=== PATIENT | female | born 1945 | race Caucasian/White ===

== ENCOUNTER 2016-10-30 04:41 | Emergency (ER) | payer MEDICARE, MEDICAID ==
[~2016-10-30] VITALS: Ht 154.9 cm; Wt 63.2 kg
[~2016-10-30 04:41] MED LIST: HYDR-3498 PO; LOSA100T7 PO; MTF1000T PO; OMEP20CA16 PO; ONDA4TAB35 PO
[2016-10-30 04:47] VITALS: Ht 154.9 cm; Wt 63.2 kg
--- NOTE | 2016-10-30 05:54 | RADRPT ---
PROCEDURE: XR Chest. CLINICAL INDICATION: Abdominal pain TECHNIQUE: A single AP view of the chest was obtained. COMPARISON: None. FINDINGS: No focal airspace opacification, pleural effusion or pneumothorax is seen. The cardiomediastinal si lhouette is within normal limits for size. Calcifications are seen within the aortic arch. The osseo us structures are unremarkable. IMPRESSION: 1. No radiographic evidence of acute cardiopulmonary disease. 2. Aortic atherosclerosis. RPTAT: HH .Veena Pineda MD, Date Time Electronically viewed and signed by .Veena Pineda MD, on 10/30/2016 05:54 .G/
--- NOTE | 2016-10-30 06:27 | RADRPT ---
PROCEDURE: CT Abdomen and Pelvis without contrast. CLINICAL INDICATION: Abdominal pain. TECHNIQUE: Routine axial tomographic images of the abdomen and pelvis were obtained from the domes the diaphragm to the symphysis pubis. The patient was scanned withoutoral or intravenous contrast. Coronal and sagittal reformatted images were obtained from the axial source images. Images were re viewed on a high-resolution PACS workstation. The total exam CTDI equals 8.85 mGy and the total exam DLP equals 513.68 mGy-cm. One or more of the following dose reduction techniques were used: Autom ated exposure control, adjustment of the mA and / or kV according to patient size, or use of iterati ve reconstruction technique. COMPARISON: None. FINDINGS: The visualized portions of the lung bases demonstrate mild bilateral basilar atelectasis. Evaluat ion of the intra-abdominal solid organs is limited on this noncontrast examination. The liver appea rs normal in size. There is no intra or extrahepatic biliary dilatation. The gallbladder appears s urgically absent. The spleen, pancreas, and adrenal glands are unremarkable. The kidneys are symmetric in size. No renal, ureteral, or bladder calculi are identified. No perine phric inflammatory changes are identified. There is a 1.9 cm cyst within the lower pole of the right kidney. The urinary bladder is grossly unremarkable. The bowel demonstrates normal course and caliber. There is no evidence of bowel obstruction. Divert icula are again noted throughout the sigmoid colon. The appendix is unremarkable. The uterus and adnexa are grossly unremarkable. No intraperitoneal free fluid, free air or abscess is identified. The aorta is normal in caliber and contains vascular calcifications. No retroperitoneal, mesenteric , or inguinal lymphadenopathy is identified. The osseous structures demonstrate degenerative changes of the spine with multilevel facet arthropat hy. There are hypertrophic changes of the bilateral L5 pars with findings suggesting prior pars def ects. There is 2-3 mm anterolisthesis of L5 on S1. No significant subcutaneous soft tissue abnormal ities are seen. IMPRESSION: 1. Limited, noncontrast CT of the abdomen and pelvis. No acute intra-abdominal abnormality identifi ed. No significant interval change. 2. Status post cholecystectomy. 3. Colonic diverticulosis. 4. 1.9 cm cyst within the lower pole of the right kidney. 5. Senescent changes with aortic atherosclerosis and degenerative changes of the spine. RPTAT: HH .Veena Pineda MD, MD Date Time Electronically viewed and signed by .Veena Pineda MD, MD on 10/30/2016 06:26 .G/
[2016-10-30 06:34] LABS: ADD UMIC YES; URINE BILIRUBIN (Dip) NEGATIVE (NEGATIVE); URINE BLOOD (Dip) 3+ (NEGATIVE); URINE COLOR LT. YELLOW (YELLOW); URINE GLUCOSE (Dip) NEGATIVE (NEGATIVE); URINE KETONES (Dip) NEGATIVE (NEGATIVE); URINE LEUKOCYTE ESTERASE (Dip) 1+ (NEGATIVE); URINE NITRITE (Dip) NEGATIVE (NEGATIVE); URINE TOTAL PROTEIN (Dip) NEGATIVE (NEGATIVE); URINE UROBILINOGEN (Dip) 0.2 E.U./dL (0.1-1.0)
[2016-10-30 06:36] LABS: BASOPHILS % 0.4 % (0.0-2.0); EOSINOPHILS # 0.9 10^3/ul (0.0-0.5); EOSINOPHILS % 16.3 % (0.0-7.0); HEMATOCRIT 40.5 % (37.0-47.0); HEMOGLOBIN 13.6 g/dl (12.0-16.0); LYMPHOCYTES % 36.5 % (15.0-51.0); MEAN CORPUSCULAR HEMOGLOBIN 31.6 pg (29.0-33.0); MEAN CORPUSCULAR HGB CONC 33.6 g/dl (32.0-37.0); MEAN CORPUSCULAR VOLUME 94.2 fl (82.0-101.0); MEAN PLATELET VOLUME 9.3 fl (7.4-10.4); MONOCYTE # 0.7 10^3/ul (0.3-0.9); MONOCYTES % 12.2 % (0.0-11.0); NEUTROPHIL # 1.9 10^3/ul (1.6-7.5); NEUTROPHILS % 34.6 % (39.0-77.0); PLATELET COUNT 196 10^3/UL (140-440); RED CELL DISTRIBUTION WIDTH 14.1 % (11.5-14.5); UNCORRECTED WBC 5.6 10^3/ul (4.8-10.8); WHITE BLOOD COUNT 5.6 10^3/ul (4.8-10.8)
[2016-10-30 06:40] LABS: INR 0.87; PROTIME 11.8 Sec (12.2-14.2); PT RATIO 0.9
[2016-10-30 06:41] LABS: PARTIAL THROMBOPLASTIN TIME 31.5 Sec (25.0-35.0)
[2016-10-30 06:43] LABS: ALBUMIN 4.2 g/dl (3.3-4.9); CHLORIDE 105 mmol/L (97-110); SODIUM 148 mmol/L (135-144)
[2016-10-30 06:44] LABS: POTASSIUM 4.4 mmol/L (3.5-5.1)
[2016-10-30 06:46] LABS: ALANINE AMINOTRANSFERASE 31 IU/L (13-69); ALBUMIN/GLOBULIN RATIO 1.07; ALKALINE PHOSPHATASE 64 IU/L (42-121); ANION GAP 22 (8-16); ASPARTATE AMINO TRANSFERASE 38 IU/L (15-46); BLOOD UREA NITROGEN 27 mg/dl (7-20); CARBON DIOXIDE 25 mmol/L (21-31); CREATININE 0.87 mg/dl (0.44-1.00); GLUCOSE 91 mg/dl (70-220); TOTAL PROTEIN 8.1 g/dl (6.1-8.1)
[2016-10-30 06:47] LABS: CALCIUM 9.6 mg/dl (8.4-10.2)
[2016-10-30 06:48] LABS: CONDITION 1; LH ANALYZER COMMENTS 1
[2016-10-30 06:49] LABS: BACTERIA,URINE FEW
[2016-10-30 06:59] LABS: TROPONIN-I < 0.012 ng/ml (0.00-0.12)
[2016-10-30] MEDS ORDERED: OSLT75C PO (07:23)
[2016-10-30] MEDS ORDERED: ONDA4TAB14 PO (07:23)
[2016-10-30 07:30] VITALS: BP 105/65; PULSE 76; RESP 18; TEMP 99.8
--- NOTE | 2016-10-30 07:38 | ERD ---
ER Documentation Chief Complaint Date/Time DATE: 10/30/16 TIME: 07:36 Chief Complaint abd pain x 3 days. also c/o cough HPI 71-year-old female. Patient Registration Supervisor used. The patient presents the emergency room with multiple complaints including 2-3 days of symptoms that include generalized malaise, subjective fevers, dry nonproductive cough and epigastric abdominal discomfort with diarrhea. She states that every time she gets sick she has this epigastric abdominal pain with diarrhea. She states that she has been having this for more than 3 years. The patient thinks that she had her flu shot this year but is unsure. She denies any significant shortness of breath, no headache. She has not taken anything prior to arrival. ROS All systems reviewed and are negative except as per history of present illness. Medications Home Meds Active Scripts Ondansetron (Ondansetron Odt) 4 Mg Tab.rapdis, 4 MG PO Q6H Y for NAUSEA AND/OR VOMITING, #30 TAB Prov:SHIVA ANDERS MD 10/30/16 Oseltamivir Phosphate* (Tamiflu*) 75 Mg Capsule, 75 MG PO BID for 5 Days, CAP Prov:SHIVA ANDERS MD 10/30/16 Hydrocodone Bit-Acetaminophen* ([place]*) 5-325 Mg Tab, 1 TAB PO Q6 Y for PAIN, # 7 TAB Prov:IZABELLA MARTINEZ DO 03/27/15 Ondansetron Hcl* (Zofran* ODT) 4 mg -ODT Tab.disper, 4 MG PO Q6 Y for NAUSEA AND /OR VOMITING, #10 TAB Prov:IZABELLA MARTINEZ DO 03/27/15 Reported Medications Omeprazole* (Omeprazole*) 20 Mg Capsule.dr, 20 MG PO DAILY, CAP 03/27/15 Losartan Potassium* (Losartan Potassium*) 100 Mg Tablet, 100 MG PO DAILY, TAB 03/27/15 Metformin* (Glucophage*) 1,000 Mg Tablet, 1000 MG PO BID, TAB 03/27/15 Allergies Allergies: Coded Allergies: No Known Allergies (Verified Allergy, Mild, 10/30/16) PMhx/Soc History of Surgery: Yes (Ex lap 43 years ago) Anesthesia Reaction: No Hx Neurological Disorder: No Hx Respiratory Disorders: No Hx Cardiac Disorders: Yes (HTN) Hx Psychiatric Problems: No Hx Alcohol Use: No Hx Substance Use: No Hx Tobacco Use: No Smoking Status: Never smoker FmHx Family History: No diabetes Physical Exam Vitals Vital Signs Date Time Temp Pulse Resp B/P Pulse Ox O2 Delivery O2 Flow Rate FiO2 10/30/16 04:47 97.7 94 20 147/57 98 Physical Exam General: Well developed, well nourished, no acute distress Head: Normocephalic, atraumatic. Eyes: Pupils equally reactive, EOM intact ENT: Moist mucous membranes Neck: Supple, no lymphadenopathy Respiratory: Lungs clear bilaterally, no distress Cardiovascular: RRR, no murmurs, rubs, or gallops Abdominal: Soft, non-tender, non-distended, no peritoneal signs : Deferred MSK: No edema, no unilateral swelling, 5/5 strength Neurologic: Alert and oriented, moving all extremities, normal speech, no focal weakness, no cerebellar signs Skin: No rash Psych: Normal mood Result Diagram: 10/30/16 0600 10/30/16 0600 Results 24 hrs Laboratory Tests Test 10/30/16 05:45 10/30/16 06:00 Urine Bacteria FEW Urine Bilirubin NEGATIVE Urine Clarity CLEAR Urine Color LT. YELLOW Urine Epithelial Cells FEW Urine Glucose NEGATIVE% Urine Hemoglobin 3+ Urine Ketones NEGATIVE Urine Leukocyte Esterase 1+ Urine Microscopic RBC 5-10/HPF Urine Microscopic WBC 2-5/HPF Urine Nitrite NEGATIVE Urine Specific [place] 1.010 Urine Total Protein NEGATIVE Urine Urobilinogen 0.2 E.U./dL Urine pH 5.0 Activated Partial Thromboplast Time 31.5Sec Alanine Aminotransferase (ALT/SGPT) 31IU/L Albumin 4.2g/dl Albumin/Globulin Ratio 1.07 Alkaline Phosphatase 64IU/L Anion Gap 22 Aspartate Amino Transf (AST/SGOT) 38IU/L Basophils # 0.010^3/ul Basophils % 0.4% Blood Urea Nitrogen 27mg/dl Calcium Level 9.6mg/dl Carbon Dioxide Level 25mmol/L Chloride Level 105mmol/L Creatinine 0.87mg/dl Direct Bilirubin 0.00mg/dl Eosinophils # 0.910^3/ul Eosinophils % 16.3% Globulin 3.90g/dl Glucose Level 91mg/dl Hematocrit 40.5% Hemoglobin 13.6g/dl INR International Normalized Ratio 0.87 Indirect Bilirubin 0.0mg/dl Lipase 164U/L Lymphocytes # 2.010^3/ul Lymphocytes % 36.5% Mean Corpuscular Hemoglobin 31.6pg Mean Corpuscular Hemoglobin Concent 33.6g/dl Mean Corpuscular Volume 94.2fl Mean Platelet Volume 9.3fl Monocytes # 0.710^3/ul Monocytes % 12.2% Neutrophils # 1.910^3/ul Neutrophils % 34.6% Nucleated Red Blood Cells # 0.010^3/ul Nucleated Red Blood Cells % 0.0/100WBC Platelet Count 39078^3/UL Potassium Level 4.4mmol/L Prothrombin Time 11.8Sec Prothrombin Time Ratio 0.9 Red Blood Count 4.3010^6/ul Red Cell Distribution Width 14.1% Sodium Level 148mmol/L Total Bilirubin 0.0mg/dl Total Protein 8.1g/dl Troponin I < 0.012ng/ml White Blood Count 5.610^3/ul Procedures/MDM EKG, MONITORS, & DIAGNOSTIC IMAGING: Chest x-ray: I reviewed and interpreted a 1 view of the chest Mediastinum: No enlargement Cardiac silhouette: No cardiomegaly Airspace: Clear lung castillo bilaterally without evidence of pneumothorax Bones: No evidence of fracture CT abdomen and pelvis: IMPRESSION: 1. Limited, noncontrast CT of the abdomen and pelvis. No acute intra-abdominal abnormality identified. No significant interval change. 2. Status post cholecystectomy. 3. Colonic diverticulosis. 4. 1.9 cm cyst within the lower pole of the right kidney. 5. Senescent changes with aortic atherosclerosis and degenerative changes of the spine. LAB INTERPRETATION: No leukocytosis, no UTI, no hepatobiliary obstruction MEDICAL DECISION MAKING: The patient presents with flulike symptoms. She describes cough, congestion, generalized malaise and subjective fevers. However she is also discovering abdominal pain and diarrhea. She has a mostly benign exam. She is otherwise well-appearing with normal vital signs. She states this abdominal pain and diarrhea as a chronic issue for her and likely unchanged from baseline. However , given the patient's age CT imaging of the abdomen and pelvis would be appropriate. ER COURSE: The patient's laboratory testing and diagnostic imaging are unrevealing. The patient continues to be extremely well-appearing in the emergency department. She has no evidence of bacterial illness. This is most consistent with likely influenza-like illness. The patient has 3 days of symptoms and I believe would benefit from Tamiflu. The patient will be initiated with Tamiflu provided with nausea medication and advised to follow-up with primary care physician as soon as possible. We discussed return precautions. An interpreter for the deaf used during ER course. I kept the patient and/or family informed of laboratory and diagnostic imaging results throughout the emergency room course. DISPOSITION PLAN: We discussed follow up with the patient's primary care doctor within 24 to 48 hours as needed. We also discussed return to the emergency room for worsening symptoms or worsening condition. Discharge Medications: Tamiflu Zofran Departure Diagnosis: Primary Impression: Influenza-like illness Additional Impressions: Chronic abdominal pain Chronic diarrhea Condition: Stable Patient Instructions: Viral Syndrome (Adult) Additional Instructions: Llame al doctor nommarion meridajo (Referral Sources) MAANA y kaley chetna ROCCO PARA DENTRO DE CHETNA SEMANA. Dgale a la secretaria que nosotros le instruimos hacer esta rocco.Avise o llame si cr condicin se empeora antes de la rocco. SHIVA ANDERS MD Oct 30, 2016 07:38
== END 2016-10-30 08:52 | disposition home or self-care (01) ==
LOC: E/R 04:41
DX: R05 Cough (principal); R50.9 Fever, unspecified; R10.9 Unspecified abdominal pain; R19.7 Diarrhea, unspecified; I10 Essential (primary) hypertension; E11.9 Type 2 diabetes mellitus without complications; Z79.4 Long term (current) use of insulin
CPT/HCPCS: 36415; 71010; 74176; 80053; 81001; 81003; 83690; 84484; 85025; 85610; 85730; 87086; 93005

== ENCOUNTER 2018-12-06 12:38 | Emergency (ER) | payer MEDICARE, OTHER ==
[~2018-12-06] VITALS: Ht 157.5 cm; Wt 66.1 kg
[~2018-12-06 12:38] MED LIST changes: +LOSA100T15 PO; -LOSA100T7 PO; +ONDA4TAB14 PO; +OSEL75CA23 PO
[2018-12-06 12:46] VITALS: Ht 157.5 cm; Wt 66.1 kg
[2018-12-06] MEDS ORDERED: SOD CHLORIDE 0.9% 500 ML IV STA (15:56)
--- NOTE | 2018-12-06 17:51 | ERD ---
ER Documentation Chief Complaint Chief Complaint pt is bib self with c/o feeling weak x 5 days, leg cramps, not sleeping HPI 73-year-old female presenting with leg cramps for the past 8 months. She states that she cannot sleep at night due to the cramping in her legs. She feels it mostly in her calves bilaterally. She has been told by her primary care doctor that she has sciatica and has been given gabapentin and tramadol without relief of her symptoms. She has been referred to a specialist which she has not seen yet. She denies any associated numbness, tingling, or weakness in her lower extremities. She denies any weakness although that is mentioned in her chief complaint from triage. She states that the cramping only happens at night and is severe, causing her to lose sleep. When she walks or climbs stairs, she feels much better. During the day when she sleeps, she does not get the cramps. ROS All systems reviewed and are negative except as per history of present illness. Medications Home Meds Active Scripts Ondansetron (Ondansetron Odt) 4 Mg Tab.rapdis, 4 MG PO Q6H PRN for NAUSEA AND/OR VOMITING, #30 TAB Prov:SHIVA ANDERS MD 10/30/16 Oseltamivir Phosphate* (Tamiflu*) 75 Mg Capsule, 75 MG PO BID for 5 Days, CAP Prov:SHIVA ANDERS MD 10/30/16 Hydrocodone Bit-Acetaminophen* ([place]*) 5-325 Mg Tab, 1 TAB PO Q6 PRN for PAIN, #7 TAB Prov:IZABELLA MARTINEZ DO 03/27/15 Ondansetron Hcl* (Zofran* ODT) 4 mg -ODT Tab.disper, 4 MG PO Q6 PRN for NAUSEA AND/OR VOMITING, #10 TAB Prov:IZABELLA MARTINEZ DO 03/27/15 Reported Medications Omeprazole* (Omeprazole*) 20 Mg Capsule.dr, 20 MG PO DAILY, CAP 03/27/15 Losartan Potassium* (Losartan Potassium*) 100 Mg Tablet, 100 MG PO DAILY, TAB 03/27/15 Metformin* (Glucophage*) 1,000 Mg Tablet, 1000 MG PO BID, TAB 03/27/15 Allergies Allergies: Coded Allergies: No Known Allergies (Verified Allergy, Mild, 2/21/17) PMhx/Soc History of Surgery: Yes (Ex lap 43 years ago) Anesthesia Reaction: No Hx Neurological Disorder: No Hx Respiratory Disorders: No Hx Cardiac Disorders: Yes (HTN) Hx Psychiatric Problems: No Hx Miscellaneous Medical Probl: Yes (DM, Hyperlipidemia) Hx Alcohol Use: No Hx Substance Use: No Hx Tobacco Use: No Smoking Status: Never smoker FmHx Family History: No diabetes Physical Exam Vitals Vital Signs Date Temp Pulse Resp B/P (MAP) Pulse Ox O2 O2 Flow FiO2 Time Delivery Rate 12/06/18 98.1 105 18 165/77 98 12:46 (106) Physical Exam Const: No acute distress Head: Atraumatic Eyes: Normal Conjunctiva ENT: Normal External Ears, Nose and Mouth. Neck: Full range of motion. No meningismus. Resp: Clear to auscultation bilaterally Cardio: Regular rate and rhythm, no murmurs. 2+ distal pulses in all 4 extremities Abd: Soft, non tender, non distended. Normal bowel sounds Skin: No petechiae or rashes Back: No midline or flank tenderness Ext: No cyanosis, or edema. No muscular or calf tenderness. Neur: Awake and alert, normal speech, no facial asymmetry, strength and sensations intact in all 4 extremities. Psych: Normal Mood and Affect Result Diagram: 12/06/18 1615 12/06/18 1615 Results 24 hrs Laboratory Tests Test 12/06/18 16:15 White Blood Count 8.1 10^3/ul Red Blood Count 4.09 10^6/ul Hemoglobin 12.3 g/dl Hematocrit 38.8 % Mean Corpuscular Volume 94.9 fl Mean Corpuscular Hemoglobin 30.1 pg Mean Corpuscular Hemoglobin Concent 31.7 g/dl Red Cell Distribution Width 13.6 % Platelet Count 242 10^3/UL Mean Platelet Volume 10.2 fl Immature Granulocytes % 0.200 % Neutrophils % % Lymphocytes % % Monocytes % % Eosinophils % % Basophils % % Nucleated Red Blood Cells % 0.0 /100WBC Immature Granulocytes # 0.020 10^3/ul Neutrophils # 10^3/ul Lymphocytes # 10^3/ul Monocytes # 10^3/ul Eosinophils # 10^3/ul Basophils # 10^3/ul Nucleated Red Blood Cells # 10^3/ul Urine Color YELLOW Urine Clarity CLEAR Urine pH 7.0 Urine Specific [place] 1.013 Urine Ketones NEGATIVE mg/dL Urine Nitrite NEGATIVE mg/dL Urine Bilirubin NEGATIVE mg/dL Urine Urobilinogen NEGATIVE mg/dL Urine Leukocyte Esterase NEGATIVE Annabelle/ul Urine Microscopic RBC 24 /HPF Urine Microscopic WBC 0 /HPF Urine Squamous Epithelial Cells FEW /HPF Urine Bacteria FEW /HPF Urine Hemoglobin 2+ mg/dL Urine Glucose NEGATIVE mg/dL Urine Total Protein NEGATIVE mg/dl Sodium Level 143 mmol/L Potassium Level 4.1 mmol/L Chloride Level 107 mmol/L Carbon Dioxide Level 24 mmol/L Anion Gap 12 Blood Urea Nitrogen 12 mg/dl Creatinine 0.75 mg/dl Est Glomerular Filtrat Rate mL/min mL/min Glucose Level 144 mg/dl Calcium Level 10.1 mg/dl Total Bilirubin 0.2 mg/dl Direct Bilirubin 0.00 mg/dl Indirect Bilirubin 0.2 mg/dl Aspartate Amino Transf (AST/SGOT) 30 IU/L Alanine Aminotransferase (ALT/SGPT) 30 IU/L Alkaline Phosphatase 62 IU/L Troponin I < 0.012 ng/ml Total Protein 7.9 g/dl Albumin 4.3 g/dl Globulin 3.60 g/dl Albumin/Globulin Ratio 1.19 Current Medications Medications Dose Sig/Fanny Start Time Status Last (Trade) Ordered Route PRN Stop Time Admin Dose Reason Admin Sodium 500 ml @ Q1H STAT 12/06/18 DC 12/06/18 Chloride 500 mls/hr IV 15:56 16:14 12/06/18 16:55 Procedures/MDM EMERGENT LABS AND DIAGNOSTIC STUDIES: Lab Results above were reviewed and interpreted by me. CBC: no anemia or evidence of infection CMP: No evidence of electrolyte abnormality, renal failure, hypoglycemia, liver failure, or biliary obstruction UA: Microscopic hematuria, unclear etiology. No evidence of infection Initial Nursing notes reviewed. Previous Medical Records requested via the Electronic Health Record. EMERGENCY DEPARTMENT COURSE / MEDICAL DECISION MAKING: Patient is presenting with complaints of bilateral lower extremity cramps at night, consistent with nocturnal leg cramps. I have a low suspicion for sciatica, rhabdomyolysis, or any other neuromuscular disorders. Labs not show any significant electrolyte abnormalities. I discussed with the patient the causes and proposed treatments for nocturnal leg cramps. Vitamin B complex and vitamin E were recommended. Advised to follow-up with PCP as soon as possible if these medications are not helping. Patient's blood pressure was elevated (>120/80) but appears stable without evidence of hypertensive emergency or urgency. The patient was counseled about the risks of hypertension and urged to pursue outpatient monitoring and therapy within a week with their primary care physician. Departure Diagnosis: Primary Impression: Nocturnal leg cramps Condition: Stable Patient Instructions: Muscle Spasm EPIFANIO BELTRAN MD Dec 06, 2018 17:51
[2018-12-06 17:53] VITALS: BP 126/78; PULSE 74; RESP 18
== END 2018-12-06 18:17 | disposition home or self-care (01) ==
LOC: E/R 12:38
DX: G47.62 Sleep related leg cramps (principal); I10 Essential (primary) hypertension; E11.9 Type 2 diabetes mellitus without complications; Z79.84 Long term (current) use of oral hypoglycemic drugs
CPT/HCPCS: 36415; 80053; 81001; 84484; 85025; 99284; J7040